=== PATIENT | male | born 1955 | race Caucasian/White ===

== ENCOUNTER 2021-07-05 16:47 | Emergency (ER) | payer BC, SELFPAY ==
[2021-07-05 16:49] VITALS: BP 171/95; PULSE 117; RESP 18; TEMP 36.8; O2SAT 96
--- NOTE | 2021-07-05 17:09 | ED.MALEGU ---
HPI - Male Genitourinary General Chief complaint: Urogenital-Male Stated complaint: Unable to Urinate Time Seen by Provider: 07/05/21 16:52 Source: patient History of Present Illness HPI Narrative: Patient presents with difficulty urinating. Mallika has had issues for the past few months he says he only gets a little bit of urine out every time he urinates and gets urgency. He thinks he has prostate issues was unable to be seen by his primary care doctor so the same to the ER notes to get some prostate medication. Reports he is able to urinate just a very small amount comes out. Reports a bloating sensation in his lower abdomen denies any fevers, chills, nausea, vomiting, dysuria, hematuria, back pain Related Data Allergies Allergy/AdvReac Type Severity Reaction Status Date / Time No Known Allergies Allergy Verified 07/05/21 16:55 Review of Systems Review of Systems: CONSTITUTIONAL: Denies fever, chills, or sweats. EYES: Denies visual changes, redness, or discharge. ENT: Denies rhinorrhea, congestion, sore throat, or otalgia. CARDIOVASCULAR: Denies chest pain, palpitations, or edema. RESPIRATORY: Denies cough or dyspnea. GASTROINTESTINAL: Denies nausea, vomiting, or diarrhea. GENITOURINARY: Denies dysuria or hematuria. SKIN: Denies rash or itching. MUSCULOSKELETAL: Denies back pain, joint pain, or myalgia. NEUROLOGIC: Denies headache, numbness, dizziness, or weakness. PSYCHIATRIC: Denies anxiety or depression. All systems reviewed & are unremarkable except as noted in HPI and below PMFSH Family History Family History Sibling Patient's sister is in good health Father Family history of alcoholism Family history of liver disease Other Hypertension Social History Social History Smoking status: Never smoker Second hand tobacco smoke exposure: No Alcohol intake: current Substance use: never Substance use type: does not use Exam Narrative: GENERAL: Well-appearing, well-nourished, and in no acute distress. HEAD: Normocephalic, atraumatic. EYES: PERRLA and EOMI. ENT: Nares clear, no rhinorrhea or epistaxis. Mucous membranes moist. NECK: Supple. No masses. No JVD ABDOMEN: Soft, nontender, nondistended, normal active bowel sounds. EXTREMITIES: Normal range of motion. No edema. SKIN: Warm, dry, no rash. NEURO: No focal deficits. Alert and oriented x3. PSYCH: Normal mood and affect. Course Reevaluation(s) Reevaluation #1: Patient resting comfortably was able to urinate in the ER results reviewed with patient. Patient is comfortable outpatient plan. Date: 07/05/21 Time: 17:46 Vital Signs Vital signs: Vital Signs Temperature 36.8 C 07/05/21 16:49 Pulse Rate 117 H 07/05/21 16:49 Respiratory Rate 18 07/05/21 16:49 Blood Pressure 171/95 H 07/05/21 16:49 Pulse Oximetry 96 07/05/21 16:49 Temperature 36.4 C 07/05/21 18:01 Pulse Rate 88 07/05/21 18:01 Respiratory Rate 20 07/05/21 18:01 Blood Pressure 132/99 H 07/05/21 18:01 Pulse Oximetry 96 07/05/21 18:01 MDM - Male Genitourinary MDM Narrative Medical decision making narrative: H&P as above, vss, pt looks clinically well, exam nonacute abdomen, labs clinically unremarkable, additional labs/img considered, symptomatic relief available as needed, on reevaluation pt continues to looks clinically well. Suspect BPH, dns acute urinary retention, postobstructive nephropathy, UTI, pyelonephritis. plan to tx/monitor as op w/ pcm f/u findings/plan discussed with pt, pt agree/comfortable with plan, return precautions given Lab Data Result diagrams: 07/05/21 17:21 Labs: Lab Results 07/05/21 07/05/21 Range/Units 17:21 17:21 Sodium 137 (137-145) mmol/L Potassium 3.7 (3.4-5.0) mmol/L Chloride 103 (98-107) mmol/L Carbon Dioxide 26 (22-30) mmol/L Anion Gap 8 (8-16) mmol/L BUN 26 H (9
--- NOTE | 2021-07-05 17:18 | PC.NURSE ---
Pt refused straight cath, pt in the bathroom at this time said will do clean catch
[2021-07-05 17:32] LABS: Add Urine Microscopic? YES; Appearance Urine Clear (Clear); Bilirubin Urine Negative (Negative); Blood Urine Negative (Negative); Color Urine Yellow (Yellow); Glucose Urine UA Negative (Negative); Ketones Urine Trace mg/dL (Negative); Leukocyte Esterase Ur Negative LEU/UL (Negative); Mucus Urine Rare /lpf; Nitrate Urine Negative (Negative); Protein Urine Negative (Negative); RBC Urine 0-2 /hpf (0-2); Specific Grav Ur 1.025 (1.001-1.035); Urobilinogen Urine Negative mg/dL (<2.0); WBC Urine 0-3 /hpf
[2021-07-05 17:40] LABS: Anion Gap 8 mmol/L (8-16); Blood Urea Nitrogen 26 mg/dL (9-20); Calcium 9.1 mg/dL (8.4-10.2); Carbon Dioxide 26 mmol/L (22-30); Chloride 103 mmol/L (98-107); Estimated CRCL calculation 70 ml/min; Estimated Glomerular Filt Rate 56; Glucose 122 mg/dL (65-110); Potassium 3.7 mmol/L (3.4-5.0); Sodium 137 mmol/L (137-145)
[2021-07-05 18:01] VITALS: BP 132/99; PULSE 88; RESP 20; TEMP 36.4; O2SAT 96
== END 2021-07-05 18:00 | disposition home or self-care (01) ==
PROVIDERS: Emergency Provider Emergency Medicine; PCP Internal Medicine
DX: R33.9 Retention of urine, unspecified (principal); R39.15 Urgency of urination
CPT/HCPCS: 36415; 80048; 81001; 99283

== ENCOUNTER 2023-10-13 09:51 | Outpatient (CLI) | payer BC, SELFPAY ==
--- NOTE | 2023-10-13 10:57 | ECG_ITS ---
Test Date: 2023-10-13 11:08:19 Measurements Intervals [place] Rate: 97 P: 60 IN: 159 QRS: 17 QRSD: 94 T: 29 QT: 317 QTc: 403 Interpretive Statements SINUS RHYTHM INFERIOR INFARCT, AGE INDETERMINATE BASELINE ARTIFACT- II, III, AVR, AVL, AVF ABNORMAL ECG No previous ECG available for comparison Electronically Signed On 10-13-2023 16:43:12 CDT by Ben Valdez D.O.
[2023-10-13 11:29] LABS: Anion Gap 11 mmol/L (4-12); Blood Urea Nitrogen 22 mg/dL (9-20); Calcium 9.8 mg/dL (8.4-10.2); Carbon Dioxide 28 mmol/L (22-30); Chloride 99 mmol/L (98-107); Estimated Glomerular Filt Rate > 60; Glucose 102 mg/dL (65-110); Potassium 4.3 mmol/L (3.4-5.0); Sodium 138 mmol/L (137-145)
[2023-10-13 12:45] LABS: Hemoglobin A1C 5.6 % (<5.7)
== END 2023-10-13 09:52 | disposition home or self-care (01) ==
LOC: ANHSURGERY 09:55
PROVIDERS: Anesthesiology; PCP Family Medicine; Visit Provider Urology
DX: Z01.818 Encounter for other preprocedural examination (principal); N52.9 Male erectile dysfunction, unspecified; I10 Essential (primary) hypertension; R94.31 Abnormal electrocardiogram [ECG] [EKG]
CPT/HCPCS: 36415; 80048; 83036; 93005

== ENCOUNTER 2023-10-26 00:42 | Day surgery (SDC) | payer BC, SELFPAY ==
[2023-10-13 10:03] VITALS: BMI 30.2
--- NOTE | 2023-10-13 10:22 | PC.NURSE ---
Addendum entered by Ofelia Lewis RN 10/13/23 10:57: SURGERY TIME 1030 AM Original Note: Report to the Outpatient Waiting Room, entrance under the green pavilion located off [facility], at time __8:30 AM on date __10/26/23 . Planned Procedure Time: . Time changes happen often and if your time is changed the preop area will call you the afternoon before. - You and your visitor will be asked to self-screen and do not enter if you have any COVID symptoms. - A mask is optional within the hospital at this time. Patients may have clear liquids (water, carbonated beverages, clear teas, apple juice) until 3 hours prior to surgery( 7:30 AM) with a maximum of 20 ounces. - No food from midnight until time of surgery - Infants may have breast milk until 4 hours before surgery, infant formula 6 hours prior to surgery. - Children will be allowed to drink immediately following surgery. If applicable, please bring a bottle or sippy cup to assist with drinking. Juice, water, soda, and popsicles are readily available. For infants on formula, please bring formula the day of surgery. Pacifiers are allowed. Take the following medications with a SIP of water the morning of surgery: _HYDROXYZINE IF NEEDED FOR ANXIETY DO NOT STOP ANY OF YOUR OTHER PRESCRIPTION MEDICATIONS PRIOR TO SURGERY ?EXCEPT THE FOLLOWING Medications to discontinue per physician HOLD ALL VITAMINS AND SUPPLEMENTS 3 DAYS PRE OP.LAST DOSE 10/22/23 Please no make-up, nail cook islander, hairspray, perfume, deodorant, or body powder the day of surgery. No jewelry (including any body piercings) or valuables the day of surgery, leave them at home. Please take a shower or bath the night before, or the morning of, surgery with an antibacterial soap. Wear comfortable, loose fitting clothing. Children are encouraged to wear pajamas. - Jewelry must be removed prior to entering the operating room. Rings and piercings that are not removed may be cut off. - The hospital will not accept responsibility for valuables. - Please leave all valuables, including medications, at home the day of surgery. If you are going home after surgery, a licensed cdl flatbed truck driver must drive you home. - NO public transportation without another adult if you receive anesthesia. - We recommend that an adult stay with you for 24 hours following discharge. - We also recommend that you do not drive, make important decision, drink alcoholic beverages, or take any drugs that were not prescribed by your health care provider for at least 24 hours after your discharge time. Follow any additional instructions given to you from your surgeon. If you or anyone in your household have experienced Covid symptoms in the past week, please notify your surgeon or the nurse liaison at the phone number below for possible testing. VRBAL AND WRITTEN instructions given to __PATIENT and asked if any additional questions and then verbalized understanding. Patient advised to call surgeon office or pre surgery nurse liaison [phone] if any additional questions.
[2023-10-13 10:58] VITALS: BP 128/82; PULSE 106; RESP 18; TEMP 36.9; O2SAT 98
[2023-10-26] VITALS (10 sets, daily range): BP systolic 128–159; BP diastolic 60–92; PULSE 73–107; RESP 13–18; TEMP 36.2–36.9; O2SAT 93–100
[2023-10-26] MEDS: DEXTROSE 5% IVPB (09:36)
[2023-10-26] MEDS: VANCOMYCIN 1,500 MG/NS 500 ML BAG 250 MG IVPB (09:36)
[2023-10-26] MEDS: LACTATED RINGERS 1,000 ML 30 ML IV CONT ×2 (09:36→14:32)
[2023-10-26] MEDS: GENTAMICIN SULFATE IVPB (09:36)
[2023-10-26] MEDS: ACETAMINOPHEN 500 MG TABLET 1000 MG PO (09:38)
[2023-10-26] MEDS: KETOROLAC 15 MG/ML VIAL (*BKC) IV PUSH (09:40)
--- NOTE | 2023-10-26 09:50 | WPDANESEPPF ---
Anes - Initial Pre Proc Eval Procedure: Operation Date: 10/26/23 10:30 Proposed Procedures p Insertion Penile Implant Prosthesis - Awa Vásquez MD s Open Umbilical Hernia Repair with Mesh - Thaddeus Carranza DO Date/Time: 10/26/23 09:50 Surgeon: Awa Vásquez MD Pre Op Diagnosis: Erectile Dysfunction, Umbilical Hernia Patient Data Age: 67 Gender: M Height: 1.88 m Weight: 106.1 kg Last Vital Signs Temp 97.3 F L 10/26/23 08:40 Pulse 73 10/26/23 08:40 Resp 18 10/26/23 08:40 BP 159/60 H 10/26/23 08:40 Pulse Ox 99 10/26/23 08:40 O2 Del Method Room Air 10/26/23 08:40 Allergies Allergy/AdvReac Type Severity Reaction Status Date / Time ragweed Allergy Severe Anaphylaxis Uncoded 10/13/23 10:05 Home Medications Medication Instructions Recorded Confirmed Type fluticasone propionate 50 1 spray intranasal DAILY #16 grams 04/18/23 10/13/23 Rx mcg/actuation nasal spray,suspension (Flonase Allergy Relief) zolpidem 10 mg tablet (Ambien) 10 mg PO QHS PRN insomnia #90 tabs 05/05/23 10/13/23 Rx testosterone cypionate 200 mg/mL 300 mg (1.5 mL) IM .every 2 weeks 05/12/23 10/13/23 Rx intramuscular oil #10 mL esomeprazole magnesium 40 mg 40 mg PO DAILY #90 caps 06/07/23 10/13/23 Rx capsule,delayed release tamsulosin 0.4 mg capsule 0.4 mg PO DAILY #90 caps 06/17/23 10/13/23 Rx syringe with needle 3 mL 23 x 1 #100 ea 06/27/23 08/19/23 Rx (BD Luer-Andres Syringe) multivitamin 1 tablet PO DAILY 08/08/23 10/13/23 History atorvastatin 10 mg tablet See Rx Instructions .Route 08/11/23 10/13/23 Rx .COMPLEX #90 tabs lisinopril 10 See Rx Instructions .Route 08/11/23 10/13/23 Rx mg-hydrochlorothiazide 12.5 mg .COMPLEX #90 tabs tablet hydroxyzine HCl 50 mg tablet 50 mg PO .prn #5 tabs 09/01/23 10/13/23 Rx Patient hx anesthesia problems: none Family hx anesthesia problems: none Results Review: All pre-operative results and documents have been reviewed as part of the pre-operative evaluation. [facility] Past Medical History Medical History Anemia, unspecified Essential (primary) hypertension Gastro-esophageal reflux disease without esophagitis Mixed hyperlipidemia Sleep apnea Unspecified asthma, uncomplicated Surgical History Surgical History [place] teeth extracted Family History Family History Sibling Patient's sister is in good health Father Family history of alcoholism Family history of liver disease Other Hypertension Social History Social History Smoking status: Never smoker Second hand tobacco smoke exposure: No Alcohol intake: current Alcohol use details: Social alcohol use Substance use: never Substance use type: does not use Do You Feel Safe in your Home?: Yes Lack of Transportation: No Lack of Food: Never True Current Housing: I Have Housing Concerned About Future Housing: No Difficulty Paying Gas/Electric Bills: No Difficulty Paying for Meds: No Currently Unemployed: No Education: High School Diploma/GED Difficulty w/ Childcare or Family Care: No Living arrangements: with family Occupation/Education: occupation 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[employer] Gender identity (if verbalized by the patient): Male Spiritual care concerns: No Anes - Eval Final PreProcedure Day of Procedure 10/26/23 09:50 Patient weight: obese Heart: regular rate and rhythm Lungs: clear to auscultation Airway: Mallampati scale class III Neurological: alert and oriented Last oral intake: >/= 8 hours ASA classification: III Emergent: no Anesthetic plan: proceed Anesthesia type and monitoring: general LMA and standard monitoring Results Review: All pre-operative results and documents have
--- NOTE | 2023-10-26 09:53 | WPDHPUPDATE1 ---
History and Physical Update Update Date/Time: 10/26/23 09:53 History and Physical has been reviewed, including an updated exam of the patient. There are NO changes in the patient's condition. Risks, benefits, and alternatives have been discussed and questions answered. Patient agrees to proceed with procedure.
--- NOTE | 2023-10-26 09:53 | PM.IMHP ---
H&P: HPI History of Present Illness Date/Time: 10/26/23 09:53 Chief Complaint: Umbilical hernia Narrative: 67 yo man presents for umbilical hernia repair and penile implant. He reports no changes since last seen in office. Review of Systems Review of Systems: All systems reviewed & are unremarkable except as noted in HPI and below Constitutional: Constitutional: Denies chills, Denies fever(s), Denies headache(s) and Denies weight loss Eyes: Eyes: Denies change in vision ENT: Denies dizziness, Denies headache(s), Denies neck mass and Denies throat swelling Cardiovascular: Cardiovascular: Denies chest pain, Denies lightheadedness and Denies dyspnea Respiratory: Respiratory: Denies cough, Denies dyspnea and Denies wheezing Gastrointestinal: Gastrointestinal: Denies abdominal pain, Denies change in bowel habits, Denies nausea and Denies vomiting Genitourinary: Genitourinary: Denies hematuria and Denies dysuria Musculoskeletal: Musculoskeletal: Reports as per HPI Integumentary/Breasts: Skin/Breast: Reports as per HPI Neurologic: Denies dizziness and Denies headache(s) Allergic/Immunologic: Allergic/Immunologic: Denies throat swelling and Denies wheezing PMFSH Past Medical History Medical History Anemia, unspecified Essential (primary) hypertension Gastro-esophageal reflux disease without esophagitis Mixed hyperlipidemia Sleep apnea Unspecified asthma, uncomplicated Surgical History Surgical History [place] teeth extracted Family History Family History Sibling Patient's sister is in good health Father Family history of alcoholism Family history of liver disease Other Hypertension Social History Social History Smoking status: Never smoker Second hand tobacco smoke exposure: No Alcohol intake: current Alcohol use details: Social alcohol use Substance use: never Substance use type: does not use Do You Feel Safe in your Home?: Yes Lack of Transportation: No Lack of Food: Never True Current Housing: I Have Housing Concerned About Future Housing: No Difficulty Paying Gas/Electric Bills: No Difficulty Paying for Meds: No Currently Unemployed: No Education: High School Diploma/GED Difficulty w/ Childcare or Family Care: No Living arrangements: with family Occupation/Education: occupation 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[employer] Gender identity (if verbalized by the patient): Male Spiritual care concerns: No Meds Home Medications and Allergies Home Medications Medication Instructions Recorded Confirmed Type fluticasone propionate 50 1 spray intranasal DAILY #16 grams 04/18/23 10/13/23 Rx mcg/actuation nasal spray,suspension (Flonase Allergy Relief) zolpidem 10 mg tablet (Ambien) 10 mg PO QHS PRN insomnia #90 tabs 05/05/23 10/13/23 Rx testosterone cypionate 200 mg/mL 300 mg (1.5 mL) IM .every 2 weeks 05/12/23 10/13/23 Rx intramuscular oil #10 mL esomeprazole magnesium 40 mg 40 mg PO DAILY #90 caps 06/07/23 10/13/23 Rx capsule,delayed release tamsulosin 0.4 mg capsule 0.4 mg PO DAILY #90 caps 06/17/23 10/13/23 Rx syringe with needle 3 mL 23 x 1 #100 ea 06/27/23 08/19/23 Rx (BD Luer-Andres Syringe) multivitamin 1 tablet PO DAILY 08/08/23 10/13/23 History atorvastatin 10 mg tablet See Rx Instructions .Route 08/11/23 10/13/23 Rx .COMPLEX #90 tabs lisinopril 10 See Rx Instructions .Route 08/11/23 10/13/23 Rx mg-hydrochlorothiazide 12.5 mg .COMPLEX #90 tabs tablet hydroxyzine HCl 50 mg tablet 50 mg PO .prn #5 tabs 09/01/23 10/13/23 Rx Allergies Allergy/AdvReac Type Severity Reaction Status Date / Time ragweed Allergy Severe Anaphylaxis Uncoded 10/13/23 10:05 Vital Signs Vital Signs - 24
--- NOTE | 2023-10-26 10:08 | WPDHPUPDATE1 ---
History and Physical Update Update Date/Time: 10/26/23 10:08 History and Physical has been reviewed, including an updated exam of the patient. There are NO changes in the patient's condition. Risks, benefits, and alternatives have been discussed and questions answered. Patient agrees to proceed with procedure.
[2023-10-26] MEDS: BUPivacaine HCL 0.25% PF 30 ML VIAL INFILTRATE (10:47)
[2023-10-26] MEDS: ceFAZolin SODIUM 1 GM VIAL (10:47)
[2023-10-26] MEDS: LIDOCAINE HCL 1% LOCAL INJ 20 ML VIAL INFILTRATE (10:47)
[2023-10-26] MEDS: BUPIVACAINE/EPINEPHRINE 0.5% 50 ML VIAL 30 ML INFILTRATE (13:42)
--- NOTE | 2023-10-26 13:56 | W.PM.PROC2 ---
Procedure Note - Detailed Date of Procedure 10/26/23 Pre-op Diagnosis Erectile Dysfunction, Peyronie's disease, Umbilical Hernia Post-op Diagnosis Same Procedure Performed 1. Insertion of 3-piece inflatable penile prosthesis. 2. Artificial erection using pharmacological agent. 3. Correction of penile curvature Surgeon Awa Vásquez MD Anesthesia General Description of Procedure Informed consent obtained, patient taken to the operating room and given preoperative IV antibiotics with vancomycin and gentamicin. Additionally the patient has been taking oral levofloxacin and done a 3-day wash with Hibiclens. The patient was shaved. He was then prepped with Betadine scrub and paint followed by ChloraPrep. Sterile drapes were placed. We again prepped with ChloraPrep. A 16-Kyrgyz Toro catheter was inserted with return of clear urine. We then performed a pharmacologically induced erection with dilute lidocaine. There was a symmetric erection with some downward curvature. We then made a penoscrotal 3 cm incision. We dissected bluntly down to identify the corporal bodies taking great care not to injure the urethra. Stay sutures of 2-0 PDS were placed in the corporal body. We sharply opened the corpora. We then serially dilated up to a 12 Parra dilator. We then measured the corpora. Measurements were 12 cm proximally and 12 cm distally. We irrigated and there was no injury. We then performed an identical procedure on the contralateral side. Measurements were 12 cm proximal, 12 cm distal. Dilators were placed into the corpora bilaterally confirming that there was no crossover. We elected to place an AMS CX device 24 cm with no rear tip extenders. We again irrigated the corporal bodies. We then inserted the prosthesis. We inflated using a surrogate reservoir and the device sat nicely with tips in the mid glans, there was approximately 30? ventral and 20? left curvature. After placing rubber shots on the tubing to the pump we carefully performed penile modeling to correct curvature. We then reinflated the device and there was [id number] of curvature in a direction. We then deflated. We then closed the pre-placed 2-0 PDS sutures. We again inflated using the surrogate reservoir with an excellent cosmetic result. We then made a right lower quadrant incision for approximately 2 cm. We bluntly dissected down to the external oblique fascia. The fascia was opened. We then the rectus muscle and created a space superiorly in the sub rectus. We emptied the bladder prior to our incision. We then irrigated copiously. We pre-placed 0 Vicryl sutures. We placed the reservoir in the sub rectus space. We fill it with 110 mL and there was no back pressure. We then left 100 mL in the reservoir. Our pre-placed external oblique fascia sutures were closed. We then made a subdartos pouch in the midline for the pump placement. It sat nicely in the inferior scrotum. We then closed the hiatus with 3-0 Vicryl suture. The tubing was then brought up to the abdominal incision. Using the quick connect device, we connected the pump to the reservoir. We then cycled the device again and it functioned nicely. We then removed the stay sutures through the glans. We then again irrigated copiously. We closed the scrotal incision transverse followed by longitudinal 3-0 Vicryl sutures and then 3-0 and 4-0 Monocryl skin closure. The right lower quadrant incision was closed with 2-0 Vicryl to Venice's, 3-0 Vicryl deep dermal layer and a 4-0 Monocryl subcuticular closure. Glue was placed over all incisions. The case was then turned over to General surgery for repair of the umbilical hernia Pathology None sent Complications No immediate complications Condition Stable
--- NOTE | 2023-10-26 14:36 | W.PM.PROC2 ---
Procedure Note - Detailed Date of Procedure 10/26/23 Pre-op Diagnosis Erectile Dysfunction, Umbilical Hernia Post-op Diagnosis Same Procedure Performed Open 2 cm umbilical hernia repair with [address] hernia patch Surgeon Thaddeus Carranza, DO Anesthesia General and Local (0.5% bupivacaine with epinephrine) Indications This is a 67-year-old man who presents with an umbilical hernia. He has had the hernia for about 18 years, but overall it had been asymptomatic. It has become slightly larger over the last couple years. He was found to have a 2 cm reducible umbilical hernia on exam. Discussions were made with the patient about treatment options and decision was made to proceed with open umbilical hernia repair with mesh. The patient also has erectile dysfunction and is undergoing penile prosthesis by Dr. Vásquez. Findings Open 2 cm umbilical hernia repair was performed. The patient was found to have a 2 cm umbilical hernia containing some preperitoneal fat. The hernia sac and preperitoneal fat was reduced. A preperitoneal plane was then created for mesh placement and then an [address] mesh was chosen. This was centered on the hernia defect within the preperitoneal pocket and then secured in place using 0 Ethibond U-stitch trans fascial sutures. No specimens were obtained for pathology. Description of Procedure Procedure as well as risks, benefits, and alternatives were discussed with the patient. Written consent was obtained and placed in chart prior to procedure. Patient was brought back to surgical suite. He was placed supine on operating table. He was then intubated by Anesthesia Department. His abdomen was prepped and draped in sterile fashion using chlorhexidine prep. 0.5% bupivacaine with epinephrine was infiltrated locally around the operative area. A 5 cm curvilinear incision was made just inferior to the umbilicus using a 15 blade scalpel. Electrocautery was used for hemostasis and for dissection down through the subcutaneous fat. Hernia sac was encountered and this was carefully freed up from surrounding subcutaneous fat using electrocautery. The hernia sac was freed up all the way down to the level of the fascia. The hernia sac was dissected free from the umbilical skin and reduced back into the abdominal cavity. The umbilical stalk was then lifted off of the fascia with electrocautery. The hernia defect was then measured. This was measuring approximately 2 cm. The decision was made to use a [address] hernia patch. The peritoneum was cleared under the fascia circumferentially around the hernia using blunt dissection and electrocautery. Once a wide enough pocket was created for the mesh, the mesh was then placed within this preperitoneal pocket and laid out flat centered on the hernia defect. The mesh appeared to be sitting in proper position. The mesh was then secured at the superior and inferior edges using 0 Ethibond U-stitch trans fascial sutures. The fascia was then closed over the mesh in a vertical fashion using 0 Ethibond [id number] sutures. The edges of the tabs on the mesh were incorporated into the fascial closure to secure the mesh to the abdominal wall. The repair was inspected and appeared secure. 0.5% bupivacaine with epinephrine was infiltrated around the fascia and subcutaneous space. The umbilical stalk was then reapproximated to the fascia using a 3 0 Vicryl simple interrupted suture. The deep dermis was reapproximated using 3 0 Vicryl simple interrupted sutures, and then the skin was approximated using 4 Monocryl running subcuticular suture. Exofin glue was then applied on top. The patient was then awakened from anesthesia, extubated, and transferred to recovery. Implants [address] hernia patch Estimated Blood Loss 10 Complications No immediate complications Condition Stable Disposition Same day [facility] Billing Surgery - Charge Forward: Surgery Billing
[2023-10-26] MEDS: fentaNYL CITRATE INJ (*CRX) 100 MCG/2 ML VIAL 25 MCG IV PUSH ×4 (14:50→15:11)
--- NOTE | 2023-10-26 15:30 | PC.NURSE ---
This patient, Marcin Guy, was admitted to [facility] Surg Room 328-01. Patient/family oriented to hospital policies and general routines including ID bracelet, bed and alarms, visiting hours, pain management, procedures, bathroom and other care routines, personal items, smoking policy, room service/diet, and visiting hours. Information on how to activate the Rapid Response Team has been discussed. Patient/Family are encouraged to report perceived risks to care and to ask questions if they do not understand what they are told or what they should do.
[2023-10-26] MEDS: HYDROcodone/acetaminophen (*CRX) 5-325 MG TABLET 1 TAB PO ×2 (16:15→21:24)
[2023-10-26] MEDS: DEXTROSE 5%/0.45% SOD CHL 1,000 ML 125 ML IV CONT (16:20)
[2023-10-26] MEDS: DOCUSATE SODIUM 100 MG CAPSULE PO (16:57)
[2023-10-26] MEDS: ATORVASTATIN 10 MG TABLET BY MOUTH (16:57)
[2023-10-26] MEDS: VANCOMYCIN 1,000 MG/NS 250 ML 1,000 MG/250 ML BAG 250 MG IVPB (21:23)
[2023-10-27 01:06] VITALS: BP 127/75; PULSE 85; RESP 16; TEMP 36; O2SAT 99
[2023-10-27 05:06] VITALS: BP 127/83; PULSE 88; RESP 16; TEMP 36; O2SAT 99
[2023-10-27 06:16] LABS: Hematocrit 45.2 % (42.0-52.0); Hemoglobin 14.8 g/dL (14.0-18.0)
[2023-10-27] MEDS: HYDROcodone/acetaminophen (*CRX) 5-325 MG TABLET 1 TAB PO ×2 (06:28→13:42)
[2023-10-27 06:31] LABS: Anion Gap 8 mmol/L (4-12); Blood Urea Nitrogen 19 mg/dL (9-20); Calcium 9.3 mg/dL (8.4-10.2); Carbon Dioxide 26 mmol/L (22-30); Chloride 103 mmol/L (98-107); Estimated CRCL calculation 69 ml/min; Estimated Glomerular Filt Rate > 60; Glucose 106 mg/dL (65-110); Potassium 3.9 mmol/L (3.4-5.0); Sodium 137 mmol/L (137-145)
[2023-10-27 07:49] LABS: Basophils Percent Auto 0.3 % (0.2-1.2); Eosinophils Percent Auto 0.2 % (0-4.4); Hematocrit 44.7 % (42.0-52.0); Hemoglobin 14.9 g/dL (14.0-18.0); Immature Granulocyte Absolute 0.07 K/mm3 (0.00-0.031); Immature Granulocyte Percent A 0.5 % (0-0.5); Lymphocytes Absolute Auto 1.33 K/mm3 (0.9-3.2); Lymphocytes Percent Auto 10.3 % (18.3-44.2); Mean Corpuscular HGB Conc 33.3 g/dl (32-36); Mean Corpuscular Hemoglobin 29.4 pg (26-34); Mean Corpuscular Volume 88.2 fl (80-100); Monocytes Absolute Auto 1.1 K/mm3 (0.1-0.6); Monocytes Percent Auto 8.5 % (2.6-8.5); Neutrophils Absolute Auto 10.3 K/mm3 (1.3-6.7); Neutrophils Percent Auto 80.2 % (45.5-73.1); Platelet Count Result 177 k/mm3 (150-375); Red Blood Count 5.07 M/mm3 (4.6-6.20); Red Cell Distribution Width 14.2 % (11.5-14.5); White Blood Count 12.9 K/mm3 (4.5-10.0)
[2023-10-27] MEDS: levoFLOXacin 500 MG TABLET PO (08:26)
[2023-10-27] MEDS: TAMSULOSIN HCL 0.4 MG CAPSULE PO (08:26)
[2023-10-27] MEDS: PANTOPRAZOLE 40 MG TABLET PO (08:26)
[2023-10-27] MEDS: DOCUSATE SODIUM 100 MG CAPSULE PO (08:26)
[2023-10-27] MEDS: MULTIVITAMINS THERAPEUTIC TAB (*BKC) 1 TABLET PO (08:26)
[2023-10-27] MEDS: ATORVASTATIN 10 MG TABLET BY MOUTH (08:26)
[2023-10-27] MEDS: VANCOMYCIN 1,000 MG/NS 250 ML 1,000 MG/250 ML BAG 250 MG IVPB (08:36)
[2023-10-27 08:56] VITALS: BP 137/78; PULSE 101; RESP 17; TEMP 36.6; O2SAT 99
--- NOTE | 2023-10-27 09:18 | WPDUROPN2 ---
Progress Note: A&P Assessment and Plan (1) Male erectile dysfunction, unspecified: Code(s): N52.9 - Male erectile dysfunction, unspecified Status: Acute Assessment and Plan: Underwent insertion of 3 piece inflatable penile prosthesis and correction of penile curvature on 10/26/[address] Vásquez. Tolerated procedure well and pain is well controlled. Dressing removed today and incisions look good. Toro catheter removed. He tolerated this well. Will plan for discharge home later today once patient is able to void. Reviewed home care instructions, medications, and follow-up care; handout provided. (2) Umbilical hernia: Qualifiers: Obstruction and gangrene presence: without obstruction or gangrene Qualified Code(s): K42.9 - Umbilical hernia without obstruction or gangrene Code(s): K42.9 - Umbilical hernia without obstruction or gangrene Status: Acute Assessment and Plan: Underwent open umbilical hernia repair on 10/26/[address] Carranza. Management per General surgery. Subjective Subjective Date/Time Seen: 10/27/23 09:18 Interval history: Marcin is feeling well today. He endorses some mild penile discomfort but otherwise has no concerns. Denies nausea, vomiting fever, chills. No issues with Toro catheter which is draining clear yellow urine. Dressing and Toro catheter removed at bedside today and he tolerated this well. Review of Systems Review of Systems: All systems reviewed & are unremarkable except as noted in HPI and below Exam Narrative: General: Awake, alert, comfortable, no acute distress HEENT: Normocephalic, atraumatic, sclerae anicteric Respiratory: Normal respiratory effort, no accessory muscle use Abdomen: Nondistended, soft, nontender : Mild bruising surrounding penile shaft, scrotal incision clean dry intact Skin: Normal coloration, warm and dry Neurologic: No focal neuro deficits noted Psychiatric: Appropriate mood and affect, judgment and insight intact Objective Data Vital Signs Vital Signs: Vital Signs - 24 hr 10/26/23 14:32 10/26/23 14:38 10/26/23 14:45 Temperature 98.5 F Pulse Rate 103 H 96 Respiratory Rate 13 14 Blood Pressure 146/92 H 146/72 H Pulse Oximetry 100 100 Oxygen Delivery Simple Face Mask Room Air Room Air Oxygen Flow Rate 6 10/26/23 15:00 10/26/23 15:15 10/26/23 15:40 Temperature 98.5 F Pulse Rate 96 92 Respiratory Rate 18 14 Blood Pressure 138/85 131/85 Pulse Oximetry 94 93 Oxygen Delivery Room Air Room Air Room Air Oxygen Flow Rate 10/26/23 15:40 10/26/23 15:55 10/26/23 16:25 Temperature 97.2 F L 97.1 F L 97.2 F L Pulse Rate 93 87 83 Respiratory Rate 16 16 16 Blood Pressure 140/86 139/83 132/79 Pulse Oximetry 95 95 98 Oxygen Delivery Oxygen Flow Rate 10/26/23 17:25 10/26/23 21:06 10/26/23 20:00 Temperature 98.1 F 97.4 F L Pulse Rate 94 107 H Respiratory Rate 16 16 Blood Pressure 145/84 H 128/85 Pulse Oximetry 98 97 Oxygen Delivery Room Air Oxygen Flow Rate 10/27/23 01:06 10/27/23 05:06 10/27/23 08:56 Temperature 96.8 F L 96.8 F L 97.9 F Pulse Rate 85 88 101 H Respiratory Rate 16 16 17 Blood Pressure 127/75 127/83 137/78 Pulse Oximetry 99 99 99 Oxygen Delivery Oxygen Flow Rate Intake/Output Intake/Output: Intake & Output 10/24/23 10/25/23 10/26/23 10/27/23 23:59 23:59 23:59 23:59 Intake Total 1423.3 1480 Output Total 80 3150 Balance 1343.3 -1670 Meds/Results Medications: Active Medications Generic Name Dose Route Start Last Admin Trade Name Freq PRN Reason Stop Dose Admin Hydrocodone Bitart/Acetaminophen 1 tab 10/26/23 15:21 10/27/23 06:28 Hydrocodone/Acetaminophen (*Crx) 5-325 Mg Tablet PO 1 tab Q4H PRN Administration Pain Rated 1-6 Atorvastatin Calcium 10 mg 10/26/23 15:21 10/27/23 08:26 Atorvastatin 10 Mg Tablet BY MOUTH 10 mg DAILY SHERRIE Administration Docus
[2023-10-27 12:08] VITALS: BP 158/81; PULSE 113; RESP 17; TEMP 36.2; O2SAT 97
--- NOTE | 2023-10-27 12:41 | PM.DS ---
DS: Admitting Diagnosis Discharge Date 10/27/23 Admitting Diagnosis Erectile dysfunction, umbilical hernia DS: Discharge Diagnosis Discharge Diagnosis (1) Male erectile dysfunction, unspecified: Code(s): N52.9 - Male erectile dysfunction, unspecified Status: Acute (2) Umbilical hernia: Qualifiers: Obstruction and gangrene presence: without obstruction or gangrene Qualified Code(s): K42.9 - Umbilical hernia without obstruction or gangrene Code(s): K42.9 - Umbilical hernia without obstruction or gangrene Status: Acute DS: Summary Hospital Course Hospital Course: Marcin Guy is a 67 year old male who presented to [place] on 10/26/23 for scheduled surgery Underwent insertion of 3 piece inflatable penile prosthesis and correction of penile curvature on 10/26/[address] Vásquez as well as open umbilical hernia repair by . Surgery was uneventful. Tolerated procedure well and pain remained well controlled. Penile dressing removed on postoperative day 1. Toro catheter removed on postoperative day 1 and patient was able to void without difficulty. Overall was doing well and felt comfortable with plans for discharge home. He was given a course of Bactrim, as well as short course of analgesics and stool softeners (via outpatient EMR). Reviewed home care instructions, medications, and follow-up care; handout provided. All questions answered. He was discharged in stable condition. Time Spent with Patient Time attestation: Total time spent providing and/or coordinating discharge services: 35 minutes Time spent: Greater than 30 minutes Exam Narrative: General: Awake, alert, comfortable, no acute distress HEENT: Normocephalic, atraumatic, sclerae anicteric Respiratory: Normal respiratory effort, no accessory muscle use Abdomen: Nondistended, soft, nontender : Mild bruising surrounding penile shaft, scrotal incision clean dry intact Skin: Normal coloration, warm and dry Neurologic: No focal neuro deficits noted Psychiatric: Appropriate mood and affect, judgment and insight intact DS: Data Data Completed and Pending Labs on day of discharge: Labs from last 24 hours 10/27/23 10/27/23 10/27/23 05:40 05:40 05:40 WBC 12.9 H RBC 5.07 Hgb 14.9 14.8 Hct 44.7 45.2 MCV 88.2 MCH 29.4 MCHC 33.3 RDW 14.2 Plt Count 177 MPV 11.0 H Immature Gran % (Auto) 0.5 Neut % (Auto) 80.2 H Lymph % (Auto) 10.3 L [place] % (Auto) 8.5 Eos % (Auto) 0.2 Baso % (Auto) 0.3 Lymph # (Auto) 1.33 [place] # (Auto) 1.1 H Eos # (Auto) 0.0 Baso # (Auto) 0.0 Abs Immat Gran (auto) 0.07 H Absolute Neuts (auto) 10.3 H Absolute Nucleated RBC 0.000 Nucleated RBC % 0.0 Sodium 137 Potassium 3.9 Chloride 103 Carbon Dioxide 26 Anion Gap 8 BUN 19 Creatinine 1.10 Estim Creat Clear Calc 69 Estimated GFR > 60 Glucose 106 Calcium 9.3 Discharge Plan Discharge Patient Disposition: Home, Self-Care Discharge Instructions: See attached handouts for postoperative care and medications Stand Alone Forms: General Discharge Instructions Follow-up/Referrals: Awa Vásquez MD [Physician] - 11/10/23 1:30 am Thaddeus Carranza DO [Physician] - Discharge Medications: Continued hydroxyzine HCl 50 mg tablet 50 mg PO .prn Qty: 5 0RF Rx Instructions: Take one tablet 30 minutes to an hour before procedure, can take another tablet if needed multivitamin Tablet 1 tablet PO DAILY fluticasone propionate [Flonase Allergy Relief] 50 mcg/actuation spray,suspension 1 spray intranasal DAILY Qty: 16 2RF Rx Instructions: administer into each nostril zolpidem [Ambien] 10 mg tablet 10 mg PO QHS PRN (Reason: insomnia) Qty: 90 1RF testosterone cypionate 200 mg/mL oil 300 mg IM .every 2 weeks Qty: 10 1RF esomeprazole magnesium 40 mg capsule,delayed release(DR/EC) 4
[2023-10-27] MEDS: FLUTICASONE PROPIONATE 0.05% NA SPR 16 GM BTL (*BKC) 1 SPRAY NASAL (13:05)
--- NOTE | 2023-10-27 13:13 | WPDANESPN ---
Anes - Prog Note Post-Op Date/Time: 10/27/23 13:13 Vital Signs: Last Vital Signs Temp 36.2 C L 10/27/23 12:08 Pulse 113 H 10/27/23 12:08 Resp 17 10/27/23 12:08 BP 158/81 H 10/27/23 12:08 Pulse Ox 97 10/27/23 12:08 O2 Del Method Room Air 10/27/23 08:30 O2 Flow Rate 6 10/26/23 14:32 Pain Score (VAS): 0 I/O: Intake & Output 10/26/23 10/27/23 10/27/23 23:59 07:59 15:59 Intake Total 490 1000 720 Output Total 3150 Balance 490 -2150 720 Laboratory Tests 10/27/23 05:40 10/27/23 05:40 10/27/23 10/27/23 10/27/23 05:40 05:40 05:40 WBC 12.9 H RBC 5.07 Hgb 14.8 14.9 Hct 45.2 44.7 MCV 88.2 MCH 29.4 MCHC 33.3 RDW 14.2 Plt Count 177 MPV 11.0 H Immature Gran % (Auto) 0.5 Neut % (Auto) 80.2 H Lymph % (Auto) 10.3 L [place] % (Auto) 8.5 Eos % (Auto) 0.2 Baso % (Auto) 0.3 Lymph # (Auto) 1.33 [place] # (Auto) 1.1 H Eos # (Auto) 0.0 Baso # (Auto) 0.0 Abs Immat Gran (auto) 0.07 H Absolute Neuts (auto) 10.3 H Absolute Nucleated RBC 0.000 Nucleated RBC % 0.0 Sodium 137 Potassium 3.9 Chloride 103 Carbon Dioxide 26 Anion Gap 8 BUN 19 Creatinine 1.10 Estim Creat Clear Calc 69 Estimated GFR > 60 Glucose 106 Calcium 9.3 Patient Feedback: Patient satisfied with anesthetic care.
[2023-10-27] MEDS: GENTAMICIN 80MG/SOD CHL 50 ML 80 MG/50 ML BAG 100 MG IVPB (13:42)
== END 2023-10-27 14:15 | disposition home or self-care (01) ==
LOC: ANHSURGERY 08:39 → ANH3MEDSUR 15:23
PROVIDERS: Surgery; PCP Family Medicine; Visit Provider Urology
PROC: (CPT 54405; principal; 2023-10-26 10:30)
PROC: (CPT 49591; 2023-10-26 10:30)
DX: K42.9 Umbilical hernia without obstruction or gangrene (principal); N52.9 Male erectile dysfunction, unspecified; N48.6 Induration penis plastica; I10 Essential (primary) hypertension; D64.9 Anemia, unspecified; K21.9 Gastro-esophageal reflux disease without esophagitis; E78.2 Mixed hyperlipidemia; G47.30 Sleep apnea, unspecified; E66.9 Obesity, unspecified; Z68.30 Body mass index [BMI] 30.0-30.9, adult; Z98.890 Other specified postprocedural states
CPT/HCPCS: 49591; 54405; 54235; 54360; 36415; 80048; 85014; 85018; 85025; A9270; C1781; C1813; J0330; J0690; J1100; J1170; J1580; J1885; J2250; J2405; J2704; J3010; J3370; J7030; J7120